=== PATIENT | female | born 1965 | race Caucasian/White ===

== ENCOUNTER 2016-12-18 13:13 | Emergency (ER) | payer OTHER ==
[~2016-12-18 13:13] MED LIST: AMLODIPINE BESYL5 MG PO; ATENOLOL50 MG PO; AUGMENTIN875 MG PO; CAPOTEN50 MG PO; ENDOCET 5-3251 EACH PO; GABAPENTIN300 MG PO; IBUPROFEN800 MG PO; K-DUR20 MEQ PO; LORTAB 5-325 M1 EACH PO; LOVENOX40 MG/0.4 SC; MOTRIN800 MG PO; NAPROSYN500 MG PO; NORVASC10 MG PO; PROAIR HFA8.5 GM IH; ZOFRAN ODT4 MG PO
[2016-12-19] MEDS ORDERED: ULTRACET1 TABLET PO (15:56)
== END 2016-12-18 13:40 | disposition left against medical advice (07) ==
LOC: EME 13:13
DX: S49.91XA Unspecified injury of right shoulder and upper arm, initial encounter (principal); M25.511 Pain in right shoulder; Z53.21 Procedure and treatment not carried out due to patient leaving prior to being seen by health care provider
CPT/HCPCS: 99281; 99283

== ENCOUNTER 2016-12-19 13:24 | Emergency (ER) | payer OTHER ==
[~2016-12-19] VITALS: Ht 162.6 cm; Wt 97.9 kg
[2016-12-19] MEDS ORDERED: ULTRACET1 TABLET PO (15:56)
[2016-12-19 16:30] VITALS: BP 160/92
== END 2016-12-19 16:29 | disposition home or self-care (01) ==
LOC: EME 13:24
DX: S43.401A Unspecified sprain of right shoulder joint, initial encounter (principal); X50.0XXA Overexertion from strenuous movement or load, initial encounter; Y93.89 Activity, other specified; I10 Essential (primary) hypertension; Z86.711 Personal history of pulmonary embolism; Z88.8 Allergy status to other drugs, medicaments and biological substances
CPT/HCPCS: 73000; 73030; 99281; 99283

== ENCOUNTER 2017-03-21 21:35 | Emergency (ER) | payer OTHER ==
[~2017-03-21] VITALS: Ht 165.1 cm; Wt 93.6 kg
[~2017-03-21 21:35] MED LIST changes: +ULTRACET1 TABLET PO
[2017-03-21 22:45] LABS: HEMATOCRIT 40.2 % (36.0-46.0); HEMOGLOBIN 13.4 G/DL (11.9-15.5); MCH 25.7 PG (29.0-34.0); MCHC 33.3 G/DL (30.0-36.0); PLATELET COUNT 249 K/uL (156-360); RBC DIS.WIDTH-CV 14.8 % (11.8-14.6); RBC DIS.WIDTH-SD 40.2 % (39-53); RED BLOOD COUNT 5.22 M/uL (3.80-5.20)
[2017-03-21 22:54] LABS: CHLORIDE 104 mEq/L (99-109); POTASSIUM 3.1 mEq/L (3.7-5.4); SODIUM 140 mEq/L (136-147)
[2017-03-21 22:56] LABS: GLUCOSE 92 mg/dL (70-99)
[2017-03-21 23:00] LABS: GFR ESTIMATE (CALCULATED) > 59 mL/min/
[2017-03-21 23:01] LABS: UREA NITROGEN (BUN) 13 mg/dL (9-23)
[2017-03-21 23:06] LABS: TROP-I INTERPRETATION NEGATIVE; TROPONIN-I < 0.01 ng/mL (0.0-0.30)
[2017-03-21 23:14] LABS: D-DIMER ELISA < 150.00 ng/mLDDU (<230)
[2017-03-22 00:34] VITALS: BP 143/77
== END 2017-03-22 00:34 | disposition home or self-care (01) ==
LOC: EME 21:35
PROVIDERS: Emergency Medicine
DX: R55 Syncope and collapse (principal); I10 Essential (primary) hypertension; J45.909 Unspecified asthma, uncomplicated; Z86.711 Personal history of pulmonary embolism; Z90.710 Acquired absence of both cervix and uterus; Z88.2 Allergy status to sulfonamides; Z88.5 Allergy status to narcotic agent
CPT/HCPCS: 71046; 80048; 83880; 84484; 85027; 85379; 85610; 85730; 93005; 99281; 99283

== ENCOUNTER 2017-06-10 20:27 | Emergency (ER) | payer OTHER ==
[~2017-06-10] VITALS: Ht 165.1 cm; Wt 96.2 kg
[2017-06-10 22:06] LABS: HEMOGLOBIN 13.3 G/DL (11.9-15.5); MCH 25.9 PG (29.0-34.0); MCHC 33.3 G/DL (30.0-36.0); MCV 77.8 FL (83-99); PLATELET COUNT 238 K/uL (156-360); RBC DIS.WIDTH-CV 14.3 % (11.8-14.6); RBC DIS.WIDTH-SD 39.8 % (39-53); RED BLOOD COUNT 5.14 M/uL (3.80-5.20); WHITE BLOOD COUNT 12.8 K/uL (4.1-10.2)
[2017-06-10 22:18] LABS: ALBUMIN 4.5 g/dL (3.2-4.8)
[2017-06-10 22:19] LABS: CHLORIDE 104 mEq/L (99-109); POTASSIUM 3.7 mEq/L (3.7-5.4); SODIUM 140 mEq/L (136-147)
[2017-06-10 22:21] LABS: GLUCOSE 97 mg/dL (70-99); TOTAL PROTEIN 7.1 g/dL (6.4-8.3)
[2017-06-10 22:23] LABS: TOTAL BILIRUBIN 0.7 mg/dL (0.0-1.0)
[2017-06-10 22:24] LABS: ALKALINE PHOSPHATASE 82 IU/L (3-129)
[2017-06-10 22:25] LABS: APPEARANCE SL.HAZY ((CLEAR)); BILIRUBIN NEGATIVE; BLOOD NEGATIVE; COLOR AMBER ((YELLOW)); GFR ESTIMATE (CALCULATED) > 59 mL/min/; GLUCOSE (STRIP) NEGATIVE; KETONES 5; LEUKOCYTES NEGATIVE; NITRITE NEGATIVE; PROTEIN (STRIP) 30; SPECIFIC GRAVITY 1.019 (1.000-1.030)
[2017-06-10 22:26] LABS: AST (GOT) 11 IU/L (2-34); UREA NITROGEN (BUN) 13 mg/dL (9-23)
[2017-06-10 22:28] LABS: ALT (GPT) 11 IU/L (3-49)
[2017-06-10 22:46] LABS: BACTERIA RARE /HPF; CALCIUM OXALATE CRYSTALS 1+ /HPF; EPITHELIAL CELLS 1+ /HPF; HYALINE CASTS 15-20 /LPF; MUCUS TRACE /LPF; RED BLOOD CELLS 0-5 /HPF (0-5); UCUL ADDED? YES
[2017-06-11] MEDS ORDERED: ZOFRAN ODT4 MG PO (00:14)
[2017-06-11] MEDS ORDERED: PERCOCET 5/31 TABLET PO (00:14)
[2017-06-11] MEDS ORDERED: FLAGYL500 MG PO (00:14)
[2017-06-11] MEDS ORDERED: CIPRO500 MG PO (00:14)
[2017-06-11 00:38] VITALS: BP 126/70
== END 2017-06-11 01:01 | disposition home or self-care (01) ==
LOC: EME 20:27
PROVIDERS: Physician Assistant
DX: K52.9 Noninfective gastroenteritis and colitis, unspecified (principal); Z86.711 Personal history of pulmonary embolism; J45.909 Unspecified asthma, uncomplicated; I10 Essential (primary) hypertension; Z88.2 Allergy status to sulfonamides; Z88.8 Allergy status to other drugs, medicaments and biological substances; Z88.5 Allergy status to narcotic agent; Z87.442 Personal history of urinary calculi
CPT/HCPCS: 74176; 80053; 81003; 83605; 85027; 87040; 87086; 93005; 99281; 99285; J2405; J3010; J7030